=== PATIENT | male | born 1960 | race African-American/Black ===

== ENCOUNTER 2019-07-21 17:06 | Emergency (ER) | payer MEDICARE, MEDICAID ==
--- OUTSIDE RECORDS SUMMARY | 2019-07-21 17:27 | XMS REPORT | Continuity of Care Document ---
:1960 External Reference #:[id number] Author Name Tristan Rangel M.D. Address [address] [facility] [address] [place] [address] Problems Description No Information Available Social History Type Date Description Comments Sex Unknown ETOH Use Rarely consumes alcohol ETOH Use Occasionally consumed alcohol in the past Tobacco Use Start: Unknown Heavy tobacco smoker (more than 10 cigarettes/day) Recreational Drug Use Denies Drug Use Smoking Status Reviewed: 12/30/18 Heavy tobacco smoker (more than 10 cigarettes/day) Exercise Limitations Back Pain Recent Travel 02/02/2018 There has been recent travel abroad Allergies, Adverse Reactions, Alerts Active Allergies Reaction Severity Comments Date Lisinopril Difficulty breathing, Facial Severe 02/02/2018 swelling, Wheezing Celery Itching 02/02/2018 Green Gill Pepper Extract Hives Severe 02/02/2018 Mushrooms Difficulty breathing, Hives, Severe 02/02/2018 Wheezing Medications Active Medications SIG Qnty Indications Ordering Date Provider Mckayla PENDLETON apply patch to 42units Juan CarlosTristan mcclure 03/01/2019 21mg/24HR skin in new Sharona Valentin Patches 24HR area daily after removal of old patch Freestyle Lite Blood fs qac and at 1units E11.9 Tristan Rangel 12/30/2018 Glucose Monitoring bedtime as Sharona Valentin System needed dx: Device e11.65 Freestyle Lite Test fs qac and at 100units E11.9 Tristan Rangel 12/30/2018 Strips bedtime as Sharona Valentin needed dx:e11.65 Metformin HCL take one tablet 180tabs R73.03 Tristan Rangel 11/23/2018 500mg Tablets by mouth Once A M., M.D. Day With Food Vitamin D 1 every day 100tabs E55.9 [facility] 11/23/2018 (Cholecalciferol) M. MJuliethD. 1000Unit Tablets Diclofenac Sodium 1 tab by mouth 60tabs G89.4 [facility] 10/28/2018 75mg twice a day M., M.D. Tablets Cyclobenzaprine HCL take one tablet 90tabs G89.4 [facility] 10/28/2018 10mg by mouth three M., M.DJulieth Tablets times a day as needed Oxycontin one tab by 60tabs [facility] 09/28/2018 40mg Tab ER 12H mouth every 12 M., M.D. Abuse-Det hours Narcan uad for 4units [facility] 09/28/2018 4mg/0.1ML Liquid emergency, september M., HomeroDJulieth repeat Nortriptyline HCL 1 cap by mouth 30caps G47.00 [facility] 09/14/2018 75mg at bedtime M. MJuliethDJulieth Capsules Lyrica one cap pt 60caps [facility] 300mg Capsules twice a day M., M.D. Epinephrine Unknown 0.3mg/0.3ML Solution Auto-Inject Montelukast Sodium one tab daily 90tabs [facility] 10mg M., M.D. Tablets Ventolin HFA 2 puff by mouth 5units [facility] 108(90Base) every 4 hours M., M.D. mcg/Act Aerosol as needed Oxycodone HCL 1 tab by mouth 150tabs [facility] 30mg Tablets every 4-6 hours M., M.D. as needed severe pain Esomeprazole Magnesium One One Cap PO 90caps [facility] 40mg qd M., M.D. Capsules Bisoprolol Fumarate Unknown 5mg Tablets Epipen 2-Robert Unknown 0.3mg/0.3ML Solution Auto-Inject Medications Administered in Office Medication SIG Qnty Indications Ordering Provider Date Admin Of Pneumovax Elvis Maki [place] 03/29/2019 Injection Immunizations CPT Code Status Date Vaccine Lot # [id number] Given 03/29/2019 Pneumovax 21564 Given 03/01/2019 Flu Virus Vaccine, Quadrivalent, Slit Virus, Im [id number] Use Vital Signs Date Vital Result Comment 06/06/2019 10:29am BP Systolic 126 mmHg BP Diastolic 60 mmHg Height 74 inches 6'2" Weight 222.00 lb BMI (Body Mass Index) 28.5 kg/m2 Heart Rate 70 /min Respiratory Rate 16 /min 04/26/2019 2:00pm BP Systolic 160 mmHg BP Diastolic 78 mmHg Height 74 inches 6'2" Weight 226.00 lb BMI (Body Mass Index) 29.0 kg/m2 Heart Rate 120 /min Respiratory Rate 17 /min Results Description No Information Available Procedures Description No Information Available Medical Devices Description No Information Available Encounters Type Date Location Provider Dx Diagnosis Office Visit 06/06/2019 [facility] Tristan Rangel, I10 Essential ( primary) 10:15a M.D. hypertension M62.830 Muscle spasm of back M54.42 Lumbago with sciatica, left side M54.41 Lumbago with sciatica, right side Z79.891 FDC (current) use of opiate analgesic J45.909 Unspecified asthma, uncomplicated F17.210 Nicotine dependence, cigarettes, uncomplicated G47.00 Insomnia, unspecified G89.4 Chronic pain syndrome M54.17 Radiculopathy, lumbosacral region K21.9 Gastro-esophageal reflux disease without esophagitis K30 Functional dyspepsia W10.8xxS Fall (on) (from) other stairs and steps, sequela S00.03xD Contusion of scalp, subsequent encounter R73.01 Impaired fasting glucose M15.9 Polyosteoarthritis, unspecified R53.83 Other fatigue R73.03 Prediabetes M25.561 Pain in right knee S76.111D Strain of right quadriceps muscle, fascia and tendon, subs E55.9 Vitamin D deficiency, unspecified E11.9 Type 2 diabetes mellitus without complications Office Visit 04/26/2019 2:00p [facility] Demarcus Carlin0 Essential (primary) N.P. hypertension M62.830 Muscle spasm of back M54.42 Lumbago with sciatica, left side M54.41 Lumbago with sciatica, right side Z79.891 intermediate designer (current) use of opiate analgesic J45.909 Unspecified asthma, uncomplicated F17.210 Nicotine dependence, cigarettes, uncomplicated G47.00 Insomnia, unspecified G89.4 Chronic pain syndrome M54.17 Radiculopathy, lumbosacral region K21.9 Gastro-esophageal reflux disease without esophagitis K30 Functional dyspepsia W10.8xxS Fall (on) (from) other stairs and steps, sequela S00.03xD Contusion of scalp, subsequent encounter R73.01 Impaired fasting glucose M15.9 Polyosteoarthritis, unspecified R53.83 Other fatigue R73.03 Prediabetes M25.561 Pain in right knee S76.111D Strain of right quadriceps muscle, fascia and tendon, subs E55.9 Vitamin D deficiency, unspecified E11.9 Type 2 diabetes mellitus without complications Office Visit 03/29/2019 10:15a [facility] Elvis Maki, I10 Essential (primary) N.P. hypertension M62.830 Muscle spasm of back M54.42 Lumbago with sciatica, left side M54.41 Lumbago with sciatica, right side Z79.891 FDC (current) use of opiate analgesic J45.909 Unspecified asthma, uncomplicated F17.210 Nicotine dependence, cigarettes, uncomplicated G47.00 Insomnia, unspecified G89.4 Chronic pain syndrome M54.17 Radiculopathy, lumbosacral region K21.9 Gastro-esophageal reflux disease without esophagitis K30 Functional dyspepsia W10.8xxS Fall (on) (from) other stairs and steps, sequela S00.03xD Contusion of scalp, subsequent encounter R73.01 Impaired fasting glucose M15.9 Polyosteoarthritis, unspecified R53.83 Other fatigue R73.03 Prediabetes M25.561 Pain in right knee S76.111D Strain of right quadriceps muscle, fascia and tendon, subs E55.9 Vitamin D deficiency, unspecified E11.9 Type 2 diabetes mellitus without complications Z23 Encounter for immunization Office Visit 03/01/2019 2:30p [facility] Elvis Maki, I10 Essential (primary) N.P. hypertension M62.830 Muscle spasm of back M54.42 Lumbago with sciatica, left side M54.41 Lumbago with sciatica, right side Z79.891 intermediate designer (current) use of opiate analgesic J45.909 Unspecified asthma, uncomplicated F17.210 Nicotine dependence, cigarettes, uncomplicated G47.00 Insomnia, unspecified G89.4 Chronic pain syndrome M54.17 Radiculopathy, lumbosacral region K21.9 Gastro-esophageal reflux disease without esophagitis K30 Functional dyspepsia W10.8xxS Fall (on) (from) other stairs and steps, sequela S00.03xD Contusion of scalp, subsequent encounter R73.01 Impaired fasting glucose M15.9 Polyosteoarthritis, unspecified R53.83 Other fatigue R73.03 Prediabetes M25.561 Pain in right knee S76.111D Strain of right quadriceps muscle, fascia and tendon, subs E55.9 Vitamin D deficiency, unspecified E11.9 Type 2 diabetes mellitus without complications Z23 Encounter for immunization Office Visit 01/27/2019 11:00a [facility] Elvis Maki, I10 Essential (primary) N.P. hypertension M62.830 Muscle spasm of back M54.42 Lumbago with sciatica, left side M54.41 Lumbago with sciatica, right side Z79.891 FDC (current) use of opiate analgesic J45.909 Unspecified asthma, uncomplicated F17.210 Nicotine dependence, cigarettes, uncomplicated G47.00 Insomnia, unspecified G89.4 Chronic pain syndrome M54.17 Radiculopathy, lumbosacral region K21.9 Gastro-esophageal reflux disease without esophagitis K30 Functional dyspepsia W10.8xxS Fall (on) (from) other stairs and steps, sequela S00.03xD Contusion of scalp, subsequent encounter R73.01 Impaired fasting glucose M15.9 Polyosteoarthritis, unspecified R53.83 Other fatigue R73.03 Prediabetes M25.561 Pain in right knee S76.111D Strain of right quadriceps muscle, fascia and tendon, subs E55.9 Vitamin D deficiency, unspecified E11.9 Type 2 diabetes mellitus without complications Office Visit 12/30/2018 3:00p [facility], I10 Essential (primary) N.P. hypertension M62.830 Muscle spasm of back M54.42 Lumbago with sciatica, left side M54.41 Lumbago with sciatica, right side Z79.891 FDC (current) use of opiate analgesic J45.909 Unspecified asthma, uncomplicated F17.210 Nicotine dependence, cigarettes, uncomplicated G47.00 Insomnia, unspecified G89.4 Chronic pain syndrome M54.17 Radiculopathy, lumbosacral region K21.9 Gastro-esophageal reflux disease without esophagitis K30 Functional dyspepsia W10.8xxS Fall (on) (from) other stairs and steps, sequela S00.03xD Contusion of scalp, subsequent encounter R73.01 Impaired fasting glucose M15.9 Polyosteoarthritis, unspecified R53.83 Other fatigue R73.03 Prediabetes M25.561 Pain in right knee S76.111D Strain of right quadriceps muscle, fascia and tendon, subs E55.9 Vitamin D deficiency, unspecified E11.9 Type 2 diabetes mellitus without complications Assessments Date Code Description Provider 06/06/2019 I10 Essential (primary) hypertension Tristan Rangel M.D. 06/06/2019 M62.830 Muscle spasm of back Tristan Rangel M.D. 06/06/2019 M54.42 Lumbago with sciatica, left side Tristan Rangel M.D. 06/06/2019 M54.41 Lumbago with sciatica, right side Tristan Rangel M.D. 06/06/2019 Z79.891 FDC (current) use of opiate analgesic Tristan Rangel M.D. 06/06/2019 J45.909 Unspecified asthma, uncomplicated Tristan Rangel M.D. 06/06/2019 F17.210 Nicotine dependence, cigarettes, Tristan Rangel M.D. uncomplicated 06/06/2019 G47.00 Insomnia, unspecified Tristan Rangel M.D. 06/06/2019 G89.4 Chronic pain syndrome Tristan Rangel M.D. 06/06/2019 M54.17 Radiculopathy, lumbosacral region Tristan Rangel M.D. 06/06/2019 K21.9 Gastro-esophageal reflux disease without Tristan Rangel M.D. esophagitis 06/06/2019 K30 Functional dyspepsia Tristan Rangel M.D. 06/06/2019 W10.8xxS Fall (on) (from) other stairs and steps, Tristan aRngel M.D. sequela 06/06/2019 S00.03xD Contusion of scalp, subsequent encounter Tristan Rangel M.D. 06/06/2019 R73.01 Impaired fasting glucose Tristan Rangel M.D. 06/06/2019 M15.9 Polyosteoarthritis, unspecified Tristan Rangel M.D. 06/06/2019 R53.83 Other fatigue Tristan Rangel M.D. 06/06/2019 R73.03 Prediabetes Tristan Rangel M.D. 06/06/2019 M25.561 Pain in right knee Tristan Rangel M.D. 06/06/2019 S76.111D Strain of right quadriceps muscle, fascia Tristan Rangel M.D. and tendon, subsequent encounter 06/06/2019 E55.9 Vitamin D deficiency, unspecified Tristan Rangel M.D. 06/06/2019 E11.9 Type 2 diabetes mellitus without Tristan Rangel M.D. complications 06/02/2019 I10 Essential (primary) hypertension Elvis Maki, N.PJulieth 06/02/2019 M62.830 Muscle spasm of back Elvis Maki N.PJulieth 06/02/2019 M54.42 Lumbago with sciatica, left side Elvis Maki N.PJulieth 06/02/2019 M54.41 Lumbago with sciatica, right side Elvis Maki N.PJulieth 06/02/2019 Z79.891 intermediate designer (current) use of opiate analgesic Elvis Maki N.P. 06/02/2019 J45.909 Unspecified asthma, uncomplicated Elvis Maki N.P. 06/02/2019 F17.210 Nicotine dependence, cigarettes, Elvis Maki N.PJulieth uncomplicated 06/02/2019 G47.00 Insomnia, unspecified Elvis Maki N.P. 06/02/2019 G89.4 Chronic pain syndrome Elvis Maki N.P. 06/02/2019 M54.17 Radiculopathy, lumbosacral region Elvis Maki N.PJulieth 06/02/2019 K21.9 Gastro-esophageal reflux disease without Elvis Maki N.PJulieth esophagitis 06/02/2019 K30 Functional dyspepsia Elvis Maki N.PJulieth 06/02/2019 W10.8xxS Fall (on) (from) other stairs and steps, Elvis Maki N.PJulieth sequela 06/02/2019 S00.03xD Contusion of scalp, subsequent encounter Elvis Maki N.PJulieth 06/02/2019 R73.01 Impaired fasting glucose Elvis Maki N.PJulieth 06/02/2019 M15.9 Polyosteoarthritis, unspecified Elvis Maki N.P. 06/02/2019 R53.83 Other fatigue Elvis Maki N.PJulieth 06/02/2019 R73.03 Prediabetes Elvis Maki N.P. 06/02/2019 M25.561 Pain in right knee Elvis Maki N.P. 06/02/2019 S76.111D Strain of right quadriceps muscle, fascia Elvis Maki N.Jose and tendon, subsequent encounter 06/02/2019 E55.9 Vitamin D deficiency, unspecified Elvis Maki N.PJulieth 06/02/2019 E11.9 Type 2 diabetes mellitus without Elvis Maki N.PJulieth complications 04/26/2019 I10 Essential (primary) hypertension Elvis Maki N.P. 04/26/2019 M62.830 Muscle spasm of back Elvis Maki N.PJulieth 04/26/2019 M54.42 Lumbago with sciatica, left side Elvis Maki N.P. 04/26/2019 M54.41 Lumbago with sciatica, right side Elvis Maki N.PJulieth 04/26/2019 Z79.891 intermediate designer (current) use of opiate analgesic Prisca Carlin.P. 04/26/2019 J45.909 Unspecified asthma, uncomplicated Elvis Maki N.PJulieth 04/26/2019 F17.210 Nicotine dependence, cigarettes, Elvis Maki N.PJulieth uncomplicated 04/26/2019 G47.00 Insomnia, unspecified Elvis Maki N.PJulieth 04/26/2019 G89.4 Chronic pain syndrome Elvis Maki N.PJulieth 04/26/2019 M54.17 Radiculopathy, lumbosacral region Elvis Maki N.PJulieth 04/26/2019 K21.9 Gastro-esophageal reflux disease without Elvis Maki N.PJulieth esophagitis 04/26/2019 K30 Functional dyspepsia Elvis Maki N.PJulieth 04/26/2019 W10.8xxS Fall (on) (from) other stairs and steps, Elvis Maki N.PJulieth sequela 04/26/2019 S00.03xD Contusion of scalp, subsequent encounter Elvis Maki N.PJulieth 04/26/2019 R73.01 Impaired fasting glucose Elvis Maki N.PJulieth 04/26/2019 M15.9 Polyosteoarthritis, unspecified Elvis Maki N.PJulieth 04/26/2019 R53.83 Other fatigue Elvis Maki N.PJulieth 04/26/2019 R73.03 Prediabetes Elvis Maki N.PJulieth 04/26/2019 M25.561 Pain in right knee Elvis Maki N.P. 04/26/2019 S76.111D Strain of right quadriceps muscle, fascia Elvis Maki N.Jose and tendon, subsequent encounter 04/26/2019 E55.9 Vitamin D deficiency, unspecified Elvis Maki N.PJulieth 04/26/2019 E11.9 Type 2 diabetes mellitus without Elvis Maki N.PJulieth complications 03/29/2019 I10 Essential (primary) hypertension Elvis Maki N.PJulieth 03/29/2019 M62.830 Muscle spasm of back Elvis Maki N.PJulieth 03/29/2019 M54.42 Lumbago with sciatica, left side Elvis Maki N.PJulieth 03/29/2019 M54.41 Lumbago with sciatica, right side Elvis Maki N.PJulieth 03/29/2019 Z79.891 FDC (current) use of opiate analgesic Elvis Maki N.PJulieth 03/29/2019 J45.909 Unspecified asthma, uncomplicated Elvis Maki N.PJulieth 03/29/2019 F17.210 Nicotine dependence, cigarettes, Elvis Maki N.P. uncomplicated 03/29/2019 G47.00 Insomnia, unspecified Elvis Maki N.P. 03/29/2019 G89.4 Chronic pain syndrome Elvis Maki N.P. 03/29/2019 M54.17 Radiculopathy, lumbosacral region Elvis Maki N.PJulieth 03/29/2019 K21.9 Gastro-esophageal reflux disease without Elvis Maki N.PJulieth esophagitis 03/29/2019 K30 Functional dyspepsia Elvis Maki N.PJulieth 03/29/2019 W10.8xxS Fall (on) (from) other stairs and steps, Elvis Maki N.P. sequela 03/29/2019 S00.03xD Contusion of scalp, subsequent encounter Elvis Maki N.PJulieth 03/29/2019 R73.01 Impaired fasting glucose Elvis Maki N.PJulieth 03/29/2019 M15.9 Polyosteoarthritis, unspecified Elvis Maki N.PJulieth 03/29/2019 R53.83 Other fatigue Elvis Maki N.PJulieth 03/29/2019 R73.03 Prediabetes Elvis Maki N.P. 03/29/2019 M25.561 Pain in right knee Elvis Maki N.P. 03/29/2019 S76.111D Strain of right quadriceps muscle, fascia Elvis Maki N.Jose and tendon, subsequent encounter 03/29/2019 E55.9 Vitamin D deficiency, unspecified Elvis Maki N.PJulieth 03/29/2019 E11.9 Type 2 diabetes mellitus without Elvis Maki N.PJulieth complications 03/29/2019 Z23 Encounter for immunization Elvis Maki N.P. 03/01/2019 I10 Essential (primary) hypertension Elvis Maki N.P. 03/01/2019 M62.830 Muscle spasm of back Elvis Maki N.P. 03/01/2019 M54.42 Lumbago with sciatica, left side Elvis Maki N.P. 03/01/2019 M54.41 Lumbago with sciatica, right side Elvis Maki N.P. 03/01/2019 Z79.891 FDC (current) use of opiate analgesic Elvis Maki N.PJulieth 03/01/2019 J45.909 Unspecified asthma, uncomplicated Elvis Maki N.PJulieth 03/01/2019 F17.210 Nicotine dependence, cigarettes, Prisca Carlin.Tutu. uncomplicated 03/01/2019 G47.00 Insomnia, unspecified Elvis Maki N.PJulieth 03/01/2019 G89.4 Chronic pain syndrome Elvis Maki N.PJulieth 03/01/2019 M54.17 Radiculopathy, lumbosacral region Elvis Maki N.PJulieth 03/01/2019 K21.9 Gastro-esophageal reflux disease without Prisca Carlin.Jose esophagitis 03/01/2019 K30 Functional dyspepsia Elvis Maki N.PJulieth 03/01/2019 W10.8xxS Fall (on) (from) other stairs and steps, Elvis Maki N.Jose sequela 03/01/2019 S00.03xD Contusion of scalp, subsequent encounter Elvis Maki N.PJulieth 03/01/2019 R73.01 Impaired fasting glucose Elvis Maki N.PJulieth 03/01/2019 M15.9 Polyosteoarthritis, unspecified Elvis Maki N.PJulieth 03/01/2019 R53.83 Other fatigue Elvis Maki N.PJulieth 03/01/2019 R73.03 Prediabetes Elvis Maki N.PJulieth 03/01/2019 M25.561 Pain in right knee Elvis Maki N.PJulieth 03/01/2019 S76.111D Strain of right quadriceps muscle, fascia Elvis Maki N.Jose and tendon, subsequent encounter 03/01/2019 E55.9 Vitamin D deficiency, unspecified Elvis Maki N.PJulieth 03/01/2019 E11.9 Type 2 diabetes mellitus without Elvis Maki N.Jose complications 03/01/2019 Z23 Encounter for immunization Elvis Maki N.PJulieth 01/27/2019 I10 Essential (primary) hypertension Elvis Maki N.PJulieth 01/27/2019 M62.830 Muscle spasm of back Elvis Maki N.PJulieth 01/27/2019 M54.42 Lumbago with sciatica, left side Elvis Maki N.P. 01/27/2019 M54.41 Lumbago with sciatica, right side Alyse CarlinPJulieth 01/27/2019 Z79.891 FDC (current) use of opiate analgesic Prisca Carlin.PJulieth 01/27/2019 J45.909 Unspecified asthma, uncomplicated Elvis Maki N.PJulieth 01/27/2019 F17.210 Nicotine dependence, cigarettes, Prisca Carlin.Jose uncomplicated 01/27/2019 G47.00 Insomnia, unspecified Elvis Maki N.PJulieth 01/27/2019 G89.4 Chronic pain syndrome Elvis Maki N.PJulieth 01/27/2019 M54.17 Radiculopathy, lumbosacral region Elvis Maki N.PJulieth 01/27/2019 K21.9 Gastro-esophageal reflux disease without Elvis Maki N.P. esophagitis 01/27/2019 K30 Functional dyspepsia Elvis Maki N.PJulieth 01/27/2019 W10.8xxS Fall (on) (from) other stairs and steps, Prisca Carlin.Jose sequela 01/27/2019 S00.03xD Contusion of scalp, subsequent encounter Elvis Maki N.PJulieth 01/27/2019 R73.01 Impaired fasting glucose Elvis Maki N.PJulieth 01/27/2019 M15.9 Polyosteoarthritis, unspecified Elvis Maki N.PJulieth 01/27/2019 R53.83 Other fatigue Elvis Maki N.PJulieth 01/27/2019 R73.03 Prediabetes Elvis Maki N.PJulieth 01/27/2019 M25.561 Pain in right knee Prisca Carlin.PJulieth 01/27/2019 S76.111D Strain of right quadriceps muscle, fascia Elvis Maki N.Jose and tendon, subseq 01/27/2019 E55.9 Vitamin D deficiency, unspecified Elvis Maki N.PJulieth 01/27/2019 E11.9 Type 2 diabetes mellitus without Prisca Carlin.Jose complications 12/30/2018 I10 Essential (primary) hypertension Elvis Maki N.PJulieth 12/30/2018 M62.830 Muscle spasm of back Elvis Maki N.PJulieth 12/30/2018 M54.42 Lumbago with sciatica, left side Prisca Carlin.PJulieth 12/30/2018 M54.41 Lumbago with sciatica, right side Prisca Carlin.PJulieth 12/30/2018 Z79.891 FDC (current) use of opiate analgesic Alyse CarlinPJulieth 12/30/2018 J45.909 Unspecified asthma, uncomplicated Elvis Maki N.PJulieth 12/30/2018 F17.210 Nicotine dependence, cigarettes, Prisca Carlin.Jose uncomplicated 12/30/2018 G47.00 Insomnia, unspecified Elvis Maki N.PJulieth 12/30/2018 G89.4 Chronic pain syndrome Elvis Maki N.PJulieth 12/30/2018 M54.17 Radiculopathy, lumbosacral region Elvis Maki N.PJulieth 12/30/2018 K21.9 Gastro-esophageal reflux disease without Elvis Maki N.P. esophagitis 12/30/2018 K30 Functional dyspepsia Elvis Maki N.PJulieth 12/30/2018 W10.8xxS Fall (on) (from) other stairs and steps, Elvis Maki N.P. sequela 12/30/2018 S00.03xD Contusion of scalp, subsequent encounter Alyse CarlinPJulieth 12/30/2018 R73.01 Impaired fasting glucose Elvis Maki N.PJulieth 12/30/2018 M15.9 Polyosteoarthritis, unspecified Elvis Maki NJuliethPJulieth 12/30/2018 R53.83 Other fatigue Elvis Maki N.PJulieth 12/30/2018 R73.03 Prediabetes Elvis Maki N.P. 12/30/2018 M25.561 Pain in right knee Prisca Carlin.PJulieth 12/30/2018 S76.111D Strain of right quadriceps muscle, fascia Elvis Maki [place] and tendon, subseq 12/30/2018 E55.9 Vitamin D deficiency, unspecified Elvis Maki N.PJulieth 12/30/2018 E11.9 Type 2 diabetes mellitus without Elvis Maki N.P. complications Plan of Treatment 06/06/2019 - Tristan Rangel M.D.I10 Essential (primary) hypertensionComments: CHECK BP TIW ( PRN)DIET AND FLUID COUNSELING LOW SODIUM DIETWT LOSSF/U LABM62.830 Muscle spasm of backComments:EXERCISE/HEAT /MESSAGEAVOID HEAVY LIFTING WT LOSSTYLENOL OR MOTRIN PRNM54.42 Lumbago with sciatica, left sideComments:EXERCISE/HEAT /MESSAGEAVOID HEAVY LIFTING WT LOSSTYLENOL OR MOTRIN PRNM54.41 Lumbago with sciatica, right sideComments:EXERCISE/HEAT /MESSAGEAVOID HEAVY LIFTING WT LOSSTYLENOL OR MOTRIN PRNZ79.891 intermediate designer (current) use of opiate analgesicComments:REVIEWED MEDICATIONS AND DIRECTIONS WITH PATIENT DUR WIIFSVZM00.909 Unspecified asthma, uncomplicatedComments:MDI / NEBULIZER TX PRN AVOID EXPOSURE TO SMOKING OR MXHCAE28.210 Nicotine dependence, cigarettes, uncomplicatedComments:SMOKING CESSATION QNZVSREFURNW34.00 Insomnia, unspecifiedComments:COUNCELLING AND REASSURANCE RELAXATION TECHNIQUES DISCUSSED COUNSELED RE: STRESSORS IN LIFE TYLENOLPM OR MOTRIN PM PRN CONTINUE PREVIOS MEDSG89.4 Chronic pain syndromeComments:DUR CHECKED, MEDICAL RECORDS XBIKDOKL86.17 Radiculopathy, lumbosacral regionComments:EXERCISE/HEAT /MESSAGE AVOID HEAVY LIFTING WT LOSS TYLENOL OR MOTRIN PRNK21.9 Gastro-esophageal reflux disease without esophagitisComments:AVOID CAFFEINE, ETOH AND SPICY FOODSTUMS OR MYLANTA PRN CALL WITH PROBLEMS OR [id number] Functional dyspepsiaComments: AVOID CAFFEINE, ETOH AND SPICY FOODSTUMS OR MYLANTA PRN CALL WITH PROBLEMS OR QYEZAXTSC99.8xxS Fall (on) (from) other stairs and steps, sequelaComments: ZFMHCLM89.03xD Contusion of scalp, subsequent encounterComments:MONITORED IF S/ S LXSWSUOR10.01 Impaired fasting glucoseComments:F/U HGAICFS [facility] AN HS PRNLOW GLUCOSE DIETM15.9 Polyosteoarthritis, unspecifiedComments:EXERCISE/HEAT/ MESSAGETYLENOL OR MOTRIN PRNAVOID HEAVY LIFTINGWT LOSSR53.83 Other fatigueComments:INCRFEASE PO FLUIDCOUNCELLING AND REASSURANCE RESTR73.03 DecgdpbrdbcR48.561 Pain in right kneeComments:EXERCISE/HEAT /MESSAGEAVOID HEAVY LIFTING WT LOSSTYLENOL OR MOTRIN PRNS76.111D Strain of right quadriceps muscle, fascia and tendon, subsequent fbgvggupoS14.9 Vitamin D deficiency, unspecifiedComments:INCREASE EXPOSURE TO SUNREVIEW OF DIETE11.9 Type 2 diabetes mellitus without complicationsComments:DIET REVIEWED CONTINUE DIETWT LOSSF/U LAB FS qAC AND HS PRN F/U FBW Functional Status Description No Information Available Mental Status Description No Information Available Referrals Description No Information Available
[2019-07-21] MEDS ORDERED: Ketorolac INJ* 30 MG/ML 1 ML VIAL IM ONE (23:44)
[2019-07-21] MEDS ORDERED: oxyCODONE TAB* 5 MG TAB PO ONE (23:44)
--- NOTE | 2019-07-21 23:46 | ED ---
Back Pain - HPI Summary HPI Summary: 58 year old male presents with acute on chronic back pain for past couple weeks. He states that he just moved to the area and does not currently have a primary. He states he's been on chronic pain medications or a while. He's had a back surgery in 1999 that they messed up. He had a revision in 2012. they told him he would like be on chronic pain meds for the rest of his lift. He has pain down the left leg. he admits to occasional numbess down legs. Denies any loss of bowel or bladder. No saddle anesthesias. No weakness. He states the pain is unbearable. Has been taking Flexeril and lidocaine patch without relief. Has also been using Aleve. He is working on trying to get a primary here. He was seen at [place] a week ago. No fevers. No IV drug use. - History of Current Complaint Chief Complaint: EDBackInjEmiliein Stated Complaint: BACK PAIN Time Seen by Provider: 07/21/19 23:44 Pain Intensity: 8 - Allergies/Home Medications Allergies/Adverse Reactions: Allergies Allergy/AdvReac Type Severity Reaction Status Date / Time celery Allergy Hives Verified 07/21/19 17:11 lisinopril Allergy Swelling Verified 07/21/19 17:11 Of Face,Lips,& Throat mushroom Allergy Airway Verified 07/21/19 17:11 Obstruction CHEN PEPPERS Allergy Hives Uncoded 07/21/19 17:11 Home Medications: Home Medications Albuterol HFA INHALER* [Ventolin HFA Inhaler*] 1 puff INH Q4H PRN 12/08/17 [ History Confirmed 12/08/17] Amitriptyline TAB* [Elavil TAB*] 50 mg PO BEDTIME 12/08/17 [History Confirmed ] Budesonide/Formote 160/4.5(NF) [Symbicort 160/4.5 (NF)] 1 puff INH DAILY [History Confirmed 12/08/17] Cyclobenzaprine TAB* [Flexeril 10 MG TAB*] 10 mg PO TID 12/08/17 [History Confirmed 12/08/17] EPINEPHrine [Epipen] 0.3 mg IJ ONCE 12/08/17 [History Confirmed 12/08/17] Meloxicam [Mobic] 15 mg PO DAILY 12/08/17 [History Confirmed 12/08/17] Montelukast Sodium TAB* [Singulair TAB*] 10 mg PO DAILY 12/08/17 [History Confirmed 12/08/17] Omeprazole CAP (NF) [Prilosec CAP* 20 MG] 40 mg PO DAILY 12/08/17 [History Confirmed 12/08/17] Oxycodone HCl [Oxycontin] 60 mg PO TID 12/08/17 [History Confirmed 12/08/17] Oxycodone HCl [Roxybond] 30 mg PO QID 12/08/17 [History Confirmed 12/08/17] Pregabalin 300 mg CAP (*) [Lyrica CAP(*)] 300 mg PO BID 12/08/17 [History Confirmed 12/08/17] tiZANidine TAB* [Zanaflex TAB*] 2 mg PO TID 12/08/17 [History Confirmed 12/08/17 ] methylPREDNISolone [Medrol Dosepak 4 MG*] 4 mg PO .SEE KEMAR INSTRUCTION #1 packet 07/21/19 [Rx] PMH/Surg Hx/FS Hx/Imm Hx Endocrine/Hematology History: Denies: Hx Diabetes Cardiovascular History: Reports: Hx Hypertension Denies: Hx Pacemaker/ICD History: Denies: Hx Renal Disease Sensory History: Denies: Hx Hearing Aid Psychiatric History: Denies: Hx Panic Disorder - Surgical History Surgery Procedure, Year, and Place: LAMINECTOMY/FUSION SPINE 2000-REVISED 2013 Infectious Disease History: No Infectious Disease History: Denies: Traveled Outside the [place] in Last 30 Days - Family History Known Family History: Positive: Non-Contributory - Social History Alcohol Use: Rare Substance Use Type: Reports: None Smoking Status (MU): Heavy Every Day Tobacco Smoker Review of Systems Negative: Fever Negative: Chest Pain Negative: Shortness Of Breath Positive: Myalgia - back pain All Other Systems Reviewed And Are Negative: Yes Physical Exam Triage Information Reviewed: Yes Vital Signs On Initial Exam: Initial Vitals Temp Pulse Resp BP Pulse Ox 98.3 F 97 15 157/109 100 07/21/19 17:08 07/21/19 17:08 07/21/19 17:08 07/21/19 17:08 07/21/19 17:08 Vital Signs Reviewed: Yes Appearance: Positive: Well-Appearing Skin: Positive: Warm, Dry Head/Face: Positive: Normal Head/Face Inspection Eyes: Positive: Normal, Conjunctiva Clear ENT: Positive: Pharynx normal Respiratory/Lung Sounds: Positive: Clear to Auscultation, Breath Sounds Present Cardiovascular: Positive: Normal, RRR Abdomen Description: Positive: Nontender, Soft Bowel Sounds: Positive: Present Musculoskeletal: Positive: Other - tenderness lower back, pos SLR left, good pulses, sensation grossly intact Neurological: Positive: Normal Psychiatric: Positive: Normal Procedures - Sedation Patient Received Moderate/Deep Sedation with Procedure: No Diagnostics - Vital Signs Vital Signs Temp Pulse Resp BP Pulse Ox 07/21/19 20:38 98.3 F 91 16 134/93 98 07/21/19 17:08 98.3 F 97 15 157/109 100 - Laboratory Lab Statement: Any lab studies that have been ordered have been reviewed, and results considered in the medical decision making process. Back Pain Course/Dx - Course Course Of Treatment: 58 year old male presents with acute on chronic back pain for past couple weeks. He states that he just moved to the area and does not currently have a primary. He states he's been on chronic pain medications or a while. He's had a back surgery in 1999 that they messed up. He had a revision in 2012. they told him he would like be on chronic pain meds for the rest of his lift. He has pain down the left leg. he admits to occasional numbess down legs. Denies any loss of bowel or bladder. No saddle anesthesias. No weakness. He states the pain is unbearable. Has been taking Flexeril and lidocaine patch without relief. Has also been using Aleve. He is working on trying to get a primary here. He was seen at [place] a week ago. No fevers. No IV drug use. On exam tenderness to left-sided lower back. No neuro deficit noted. discussed can not gave chronic pain meds here. We'll place on a steroid. gave referral for [facility] and pain management. Patient understands and agrees with plan. - Diagnoses Differential Diagnosis/HQI/PQRI: Positive: Herniated Disc, Strain, Sprain Provider Diagnoses: Back pain Discharge ED - Sign-Out/Discharge Documenting (check all that apply): Patient Departure - Discharge Plan Condition: Good Disposition: HOME Prescriptions: methylPREDNISolone [Medrol Dosepak 4 MG*] 4 mg PO .SEE KEMAR INSTRUCTION #1 packet Patient Education Materials: Back Pain (ED) Referrals: [facility] [Outside] Anuel Anders MD [Medical Doctor] - Additional Instructions: Follow directions on package for Medrol pack Use ibuprofen or Tylenol for pain every 6 hours ice/heat area, move as much as possible Establish care with primary Return to ED if develop any new or worsening symptoms - Billing Disposition and Condition Condition: GOOD Disposition: Home
[2019-07-22 00:31] VITALS: BP 150/118
== END 2019-07-22 00:30 | disposition home or self-care (01) ==
LOC: ED 17:06
DX: M54.9 Dorsalgia, unspecified (principal); G89.29 Other chronic pain; I10 Essential (primary) hypertension; F17.200 Nicotine dependence, unspecified, uncomplicated; Z79.899 Other long term (current) drug therapy; Z88.8 Allergy status to other drugs, medicaments and biological substances
CPT/HCPCS: 96372; 99282; A9270-GY; J1885